=== PATIENT | female | born 1990 | race African-American/Black ===

== ENCOUNTER 2019-07-29 14:26 | Emergency (ER) | payer MEDICAID ==
[~2019-07-29] VITALS: Ht 170.2 cm; Wt 100.0 kg
[2019-07-29 14:57] VITALS: BP 139/92
[2019-07-29] MEDS ORDERED: IBUPROFEN 600MG TABLET PO STA (15:59)
== END 2019-07-29 17:11 | disposition home or self-care (01) ==
LOC: EDBD 14:26 → ER 15:20
DX: M79.671 Pain in right foot (principal)
CPT/HCPCS: 73630; 99283

== ENCOUNTER 2019-10-09 12:45 | Emergency (ER) | payer MEDICAID ==
[~2019-10-09] VITALS: Ht 160 cm; Wt 109.0 kg
[2019-10-09] MEDS ORDERED: ACETAMINOPHEN 325MG TABLET PO ONE (13:30)
[2019-10-09 13:36] VITALS: BP 148/78
== END 2019-10-09 13:36 | disposition home or self-care (01) ==
LOC: ER 12:45
DX: G40.909 Epilepsy, unspecified, not intractable, without status epilepticus (principal); Z98.890 Other specified postprocedural states
CPT/HCPCS: 99283

== ENCOUNTER 2019-10-29 10:16 | Emergency (ER) | payer MEDICAID, OTHER ==
[~2019-10-29] VITALS: Ht 160 cm; Wt 120.0 kg
[2019-10-29] MEDS ORDERED: SODIUM CHLORIDE 0.9% 1,000 ML IV ONE (10:45)
[2019-10-29 11:16] LABS: BASOPHILS % 0.6 % (0.0-2.0); EOSINOPHILS % 1.5 % (0.0-5.0); HEMOGLOBIN. 13.1 g/dL (12.0-16.0); LYMPHOCYTES % 39.5 % (20.0-50.0); MEAN CORPUSCULAR HEMOGLOBIN 31.7 pg (28.0-32.0); MEAN CORPUSCULAR VOLUME 92.5 fL (81.0-99.0); MEAN PLATELET VOLUME 8.4 fl (7.4-10.4); NEUTROPHILS % 50.4 % (40.0-76.0); PLATELET 289 x1000/uL (130-400); RED BLOOD CELL COUNT 4.11 mill/uL (4.2-5.4)
[2019-10-29 11:16] LABS: CLARITY URINE CLOUDY (CLEAR); COLOR URINE YELLOW (YELLOW); KETONES URINE NEGATIVE (NEGATIVE); LEUKOCYTE ESTERASE URINE NEGATIVE (NEGATIVE); NITRITE URINE NEGATIVE (NEGATIVE); OCCULT BLOOD URINE NEGATIVE (NEGATIVE); PROTEIN URINE TRACE (NEGATIVE); SPECIFIC GRAVITY URINE 1.025 (1.005-1.030)
[2019-10-29 11:21] LABS: CHLORIDE 109 mEq/L (98-107)
[2019-10-29 11:36] LABS: PROTHROMBIN TIME 10.6 sec (9.6-11.0)
[2019-10-29] MEDS ORDERED: MORPHINE SULFATE 4 MG/ML CPJ (NOT FOR IM USE) IV ONE (12:45)
[2019-10-29 13:33] VITALS: BP 146/84
[2019-10-29] MEDS ORDERED: IOHEXOL-300 100 ML BOTTLE ONE (13:33)
== END 2019-10-29 13:37 | disposition home or self-care (01) ==
LOC: ER 10:31
DX: R10.31 Right lower quadrant pain (principal); G40.909 Epilepsy, unspecified, not intractable, without status epilepticus; Z98.890 Other specified postprocedural states
CPT/HCPCS: 36415; 74177; 80053; 81003; 81025; 83690; 85025; 85610; 96374; 99285; J2270; J7030; Q9967

== ENCOUNTER 2019-11-14 15:04 | Emergency (ER) | payer MEDICAID ==
[~2019-11-14] VITALS: Ht 160 cm; Wt 114.0 kg
[2019-11-14 15:58] LABS: CLARITY URINE CLOUDY (CLEAR); COLOR URINE DARK YELLOW (YELLOW); KETONES URINE TRACE (NEGATIVE); LEUKOCYTE ESTERASE URINE 2+ (NEGATIVE); NITRITE URINE NEGATIVE (NEGATIVE); OCCULT BLOOD URINE 3+ (NEGATIVE); PROTEIN URINE 3+ (NEGATIVE); SPECIFIC GRAVITY URINE 1.032 (1.005-1.030)
[2019-11-14 16:31] VITALS: BP 125/69
== END 2019-11-14 16:33 | disposition home or self-care (01) ==
LOC: ER 15:04
DX: N39.0 Urinary tract infection, site not specified (principal); G40.909 Epilepsy, unspecified, not intractable, without status epilepticus
CPT/HCPCS: 81003; 81025; 99283

== ENCOUNTER 2020-01-17 17:51 | Emergency (ER) | payer MEDICAID ==
[~2020-01-17] VITALS: Ht 160 cm; Wt 113.0 kg
[2020-01-17 17:58] VITALS: BP 133/82
[2020-01-17] MEDS ORDERED: TOPIRAMATE 25MG TABLET PO STA (20:42)
[2020-01-17] MEDS ORDERED: ACETAMINOPHEN 325MG TABLET PO ONE (20:45)
== END 2020-01-17 21:17 | disposition home or self-care (01) ==
LOC: ER 17:51
DX: G43.909 Migraine, unspecified, not intractable, without status migrainosus (principal); G44.89 Other headache syndrome; Z76.0 Encounter for issue of repeat prescription; Z98.890 Other specified postprocedural states
CPT/HCPCS: 99283

== ENCOUNTER 2020-11-29 19:38 | Emergency (ER) | payer MEDICAID ==
[~2020-11-29] VITALS: Ht 160 cm; Wt 115.0 kg
[2020-11-29] MEDS ORDERED: IBUPROFEN 600MG TABLET PO ONE (21:00)
[2020-11-29 21:05] LABS: CLARITY URINE CLEAR (CLEAR); COLOR URINE YELLOW (YELLOW); KETONES URINE TRACE (NEGATIVE); LEUKOCYTE ESTERASE URINE NEGATIVE (NEGATIVE); NITRITE URINE NEGATIVE (NEGATIVE); OCCULT BLOOD URINE 3+ (NEGATIVE); PROTEIN URINE NEGATIVE (NEGATIVE); SPECIFIC GRAVITY URINE 1.028 (1.005-1.030); UROBILINOGEN URINE 0.2 E.U./dL (0.2-1.0)
[2020-11-29 21:30] LABS: BASOPHILS % 1.1 % (0.0-2.0); HEMATOCRIT. 28.6 % (36.0-48.0); HEMOGLOBIN. 9.5 g/dL (12.0-16.0); LYMPHOCYTES % 46.8 % (20.0-50.0); MEAN CORPUSCULAR HEMOGLOBIN 26.9 pg (28.0-32.0); MEAN CORPUSCULAR VOLUME 81.3 fL (81.0-99.0); MEAN PLATELET VOLUME 7.6 fl (7.4-10.4); MONOCYTES % 8.7 % (2.0-8.0); NEUTROPHILS % 41.4 % (40.0-76.0); PLATELET 386 x1000/uL (130-400); RED BLOOD CELL COUNT 3.51 mill/uL (4.2-5.4); RED CELL DISTRIBUTION WIDTH 15.7 % (11.6-14.6)
[2020-11-29 21:33] LABS: CHLORIDE 108 mEq/L (98-107)
[2020-11-29 21:46] LABS: B-HCG QUANTITATIVE < 1 mIU/mL (<3)
[2020-11-29] MEDS ORDERED: IBUP-2029 MT (23:42)
[2020-11-29 23:55] VITALS: BP 150/79
== END 2020-11-29 23:58 | disposition home or self-care (01) ==
LOC: ER 19:38
DX: D25.9 Leiomyoma of uterus, unspecified (principal); R56.9 Unspecified convulsions; F17.210 Nicotine dependence, cigarettes, uncomplicated; Z98.890 Other specified postprocedural states
CPT/HCPCS: 36415; 76830; 76856; 80053; 81003; 81025; 84702; 85025; 86850; 86900; 99284

== ENCOUNTER 2021-05-11 18:19 | Emergency (ER) | payer MEDICAID ==
[~2021-05-11] VITALS: Ht 160 cm; Wt 144.0 kg
[~2021-05-11 18:19] MED LIST: IBUP-2029 MT
[2021-05-11 18:36] VITALS: BP 106/79
== END 2021-05-11 18:58 | disposition left against medical advice (07) ==
LOC: ER 18:19
DX: Z53.21 Procedure and treatment not carried out due to patient leaving prior to being seen by health care provider (principal)

== ENCOUNTER 2023-04-01 19:46 | Emergency (ER) | payer MEDICAID, OTHER ==
[~2023-04-01] VITALS: Ht 165.1 cm; Wt 150.0 kg
[2023-04-01] MEDS ORDERED: AMITRIPTYLINE 50MG TABLET PO ONE (20:00)
[2023-04-01] MEDS ORDERED: CARBAMAZEPINE 200MG TABLET PO ONE (20:00)
[2023-04-01] MEDS ORDERED: TOPIRAMATE 25MG TABLET PO SCH (20:00)
[2023-04-01] MEDS ORDERED: LEVETIRACETAM 250MG TABLET PO ONE (20:00)
[2023-04-01 20:18] VITALS: O2SAT 100
[2023-04-01] MEDS ORDERED: AMITRIPTYLINE 25MG TABLET PO NR (21:00)
[2023-04-01 21:27] LABS: BASOPHILS % 0.5 % (0.0-2.0); EOSINOPHILS % 1.6 % (0.0-5.0); HEMATOCRIT. 32.2 % (36.0-48.0); HEMOGLOBIN. 9.5 g/dL (12.0-16.0); LYMPHOCYTES % 34.9 % (20.0-50.0); MEAN CORPUSCULAR HEMOGLOBIN 21.7 pg (28.0-32.0); MEAN CORPUSCULAR HGB CONC 29.4 g/dL (31.0-37.0); MEAN CORPUSCULAR VOLUME 73.7 fL (81.0-99.0); MEAN PLATELET VOLUME 7.8 fl (7.4-10.4); MONOCYTES % 8.5 % (2.0-8.0); NEUTROPHILS % 54.5 % (40.0-76.0); PLATELET 353 x1000/uL (130-400); RED BLOOD CELL COUNT 4.37 mill/uL (4.2-5.4); RED CELL DISTRIBUTION WIDTH 18.9 % (11.6-14.6)
[2023-04-01 21:28] LABS: DIFFERENTIAL COMMENT 1
[2023-04-01 21:38] LABS: CALCIUM 8.5 mg/dL (8.5-10.1); CHLORIDE 112 mEq/L (98-107); INDEX HEMOLYSI 1 (1-3); INDEX ICTERIC 1 (1-4); INDEX LIPEMIC 1 (1-3); POTASSIUM 4.6 mEq/L (3.5-5.1); SODIUM 141 mEq/L (136-145)
[2023-04-01 21:41] LABS: CARBON DIOXIDE 28 mEq/L (21-32); GLUCOSE 98 mg/dL (70-105); UREA NITROGEN BLOOD 14 mg/dL (7-21)
[2023-04-01] MEDS ORDERED: CARB200C7 MT (21:51)
[2023-04-01] MEDS ORDERED: LEVE750T35 MT (21:52)
[2023-04-01] MEDS ORDERED: AMIT25TA9 MT (21:52)
[2023-04-01] MEDS ORDERED: TOPI25CA6 MT (21:52)
[2023-04-01 22:00] VITALS: BP 152/98; PULSE 112; RESP 21; TEMP 98.8
== END 2023-04-01 22:09 | disposition home or self-care (01) ==
LOC: ER 19:46
DX: R56.9 Unspecified convulsions (principal); F12.10 Cannabis abuse, uncomplicated; Z91.148 Patient's other noncompliance with medication regimen for other reason
CPT/HCPCS: 36415; 80048; 82962; 85025; 93005; 99284

== ENCOUNTER 2023-06-16 17:53 | Emergency (ER) | payer MEDICAID, OTHER ==
[~2023-06-16] VITALS: Ht 167.6 cm; Wt 181.0 kg
[~2023-06-16 17:53] MED LIST changes: +AMIT25TA9 MT; +CARB200C7 MT; +LEVE750T35 MT; +TOPI25CA6 MT
[2023-06-16 17:57] VITALS: O2SAT 97
[2023-06-16] MEDS ORDERED: SODIUM CHLORIDE 0.9% 1,000 ML IV ONE (18:45)
[2023-06-16] MEDS ORDERED: VANCOMYCIN 1G PREMIX 200 ML IV ONE (18:45)
[2023-06-16] MEDS ORDERED: PIPERACILLIN/TAZO 3.375G/50ML 50 ML IV ONE (18:45)
[2023-06-16 21:01] LABS: BASOPHILS % 0.5 % (0.0-2.0); EOSINOPHILS % 0.4 % (0.0-5.0); HEMOGLOBIN. 10.2 g/dL (12.0-16.0); LYMPHOCYTES % 19.5 % (20.0-50.0); MEAN CORPUSCULAR HEMOGLOBIN 21.6 pg (28.0-32.0); MEAN CORPUSCULAR HGB CONC 27.7 g/dL (31.0-37.0); MEAN CORPUSCULAR VOLUME 77.9 fL (81.0-99.0); MEAN PLATELET VOLUME 7.7 fl (7.4-10.4); MONOCYTES % 10.5 % (2.0-8.0); NEUTROPHILS % 69.1 % (40.0-76.0); PLATELET 278 x1000/uL (130-400); RED BLOOD CELL COUNT 4.75 mill/uL (4.2-5.4); RED CELL DISTRIBUTION WIDTH 21.3 % (11.6-14.6); WHITE BLOOD COUNT 9.9 x1000/uL (4.5-11.0)
[2023-06-16 21:03] LABS: ADD RBC MORPHOLOGY YES; DIFFERENTIAL COMMENT 1
[2023-06-16 21:08] LABS: ALANINE AMINOTRANSFERASE 303 IU/L (10-49); ALBUMIN 3.7 g/dL (3.2-4.8); ASPARTATE AMINOTRANSFERASE 490 IU/L (<34); BILIRUBIN TOTAL 1.4 mg/dL (0.1-1.0); CALCIUM 9.5 mg/dL (8.7-10.4); CARBON DIOXIDE 20 mEq/L (21-32); CHLORIDE 101 mEq/L (98-107); CREATININE 0.9 mg/dL (0.6-1.0); GLUCOSE 92 mg/dL (70-105); POTASSIUM 5.5 mEq/L (3.5-5.1); PROTEIN TOTAL 7.9 g/dL (6.0-8.3); SODIUM 132 mEq/L (136-145); UREA NITROGEN BLOOD 24 mg/dL (9-23)
[2023-06-16 21:09] LABS: D-DIMER 24.9 mg/L FEU (<0.50); INR 2.1; PROTHROMBIN TIME 21.4 sec (9.6-11.0)
[2023-06-16 21:18] LABS: LACTIC ACID 4.4 mmol/L (0.4-2.0)
[2023-06-16 21:23] LABS: ANISOCYTOSIS 2+; HYPOCHROMASIA 2+; MICROCYTOSIS 1+; PLATELET ESTIMATE NORMAL
[2023-06-16 21:30] LABS: TROPONIN I HIGH SENSITIVITY 434 ng/L (3.0-34)
[2023-06-16 21:31] LABS: ETHANOL BLOOD < 10 mg/dL (<10)
[2023-06-16] MEDS ORDERED: DEXTROSE 50% WATER 50ML SYRINGE IV NR (21:45)
[2023-06-16] MEDS ORDERED: FUROSEMIDE 40MG/4ML VIAL IV NR (21:45)
[2023-06-16] MEDS ORDERED: ASPIRIN 325MG EC TABLET PO NR (21:45)
[2023-06-16] MEDS ORDERED: SODIUM BICARBONATE 8.4% 1 MEQ/ML 50ML SYR IV NR (21:45)
[2023-06-16] MEDS ORDERED: SODIUM CHLORIDE 0.9% 1,000 ML IV NR (21:45)
[2023-06-16] MEDS ORDERED: INSULIN REGULAR (HUMULIN R) 300UNITS/3ML VIAL IV NR (21:45)
[2023-06-16] MEDS ORDERED: ALBUTEROL (0.083%) 2.5MG/3ML NEB HHN NR (21:45)
[2023-06-16] MEDS ORDERED: CALCIUM CHLORIDE 1GM/10ML SYR IV NR (21:45)
[2023-06-17] MEDS ORDERED: ALBUTEROL (0.5%) 2.5MG/0.5ML NEB HHN ONE ×2 (01:13)
[2023-06-17 01:19] VITALS: PULSE 142; RESP 18
[2023-06-17] MEDS ORDERED: METOPROLOL TARTRATE 50MG TABLET PO NR (04:00)
[2023-06-17 04:33] LABS: CLARITY URINE CLEAR (CLEAR); COLOR URINE YELLOW (YELLOW); GLUCOSE URINE NEGATIVE (NEGATIVE); KETONES URINE NEGATIVE (NEGATIVE); LEUKOCYTE ESTERASE URINE NEGATIVE (NEGATIVE); NITRITE URINE NEGATIVE (NEGATIVE); OCCULT BLOOD URINE 3+ (NEGATIVE); PROTEIN URINE NEGATIVE (NEGATIVE); SPECIFIC GRAVITY URINE 1.006 (1.005-1.030)
[2023-06-17 04:44] LABS: *AMPHETAMINES SCREEN URINE NEGATIVE (NEGATIVE); *BARBITURATES SCREEN URINE NEGATIVE (NEGATIVE); *BENZODIAZEPINES SCREEN URINE NEGATIVE (NEGATIVE); *COCAINE SCREEN URINE NEGATIVE (NEGATIVE); CANNABINOID URINE SCREEN NEGATIVE (NEGATIVE); ECSTASY MDMA SCREEN URINE NEGATIVE (NEGATIVE); METHADONE URINE SCREEN Neg (NEGATIVE); OPIATES URINE SCREEN NEGATIVE (NEGATIVE); PHENCYCLIDINE URINE SCREEN NEGATIVE (NEGATIVE)
[2023-06-17 05:04] LABS: SQUAMOUS EPITHELIAL CELL URINE FEW /lpf (RARE/1+)
[2023-06-17 05:05] LABS: WBC URINE 0-2 /hpf (0-2)
[2023-06-17 05:06] LABS: BACTERIA URINE NONE SEEN
[2023-06-17] MEDS ORDERED: DEXTROSE 50% WATER 50ML SYRINGE IV ONE ×2 (10:39→10:50)
[2023-06-17 13:46] VITALS: BP 138/109; PULSE 106; RESP 20; TEMP 97.9
== END 2023-06-17 14:39 ==
LOC: ER 17:53 → EDBEDREQ 23:41 → EDBEDREQTM 23:41 → CANBEDREQ 06-17 13:43 → ER 06-17 14:39
DX: A41.9 Sepsis, unspecified organism (principal); R79.89 Other specified abnormal findings of blood chemistry; L03.818 Cellulitis of other sites; E87.5 Hyperkalemia; G40.909 Epilepsy, unspecified, not intractable, without status epilepticus
CPT/HCPCS: 80053; 80320; 82962 ×2; 83880; 83605; 85025; 85379; 85610; 87040; 84484; 36415; 84145; 71045; 93005; 96368; 92950; 96365; 96366; 96375 ×2; 99285; 80305; 81003; 87086; 94640; 94660; J3490 ×2; J1940; J1815; J2543; J3370; J7030; Z7610 ×7; C1893; G0480